=== PATIENT | female | born 1940 | race Caucasian/White ===

== ENCOUNTER 2017-10-19 17:23 | Emergency (ER) | payer MEDICARE ==
[2017-10-19] MEDS ORDERED: GABA-549 PO (17:40)
[2017-10-19] MEDS ORDERED: IBAN3DIS2 IV (17:40)
--- NOTE | 2017-10-19 17:48 | ER Report ---
History and Physical Time Seen By MD: 17:47 Hx. of Stated Complaint: PATIENT REPORTS SYMPTOMS OF UTI HPI/ROS CHIEF COMPLAINT: Urinary tract infection HISTORY OF PRESENT ILLNESS: This is a 77-year-old female presents to the emergency department for urinary tract infection. Patient states that she is traveling through with her granddaughter from [facility] to [facility], yesterday she developed some very discomfort progressively getting worse through today. Patient states she does have burning, urgency and frequency. Patient denies fevers, chest pain, shortness of breath. No other complaints. Patient has had these in the past. Allergies: Coded Allergies: No Known Drug Allergies (Unverified , 10/19/17) Home Meds Active Scripts Nitrofurantoin Monohyd/M-Cryst (MACROBID 100 MG CAPSULE) 100 Mg Capsule, 100 MG PO BID for 5 Days, #10 CAPSULE 0 Refills Prov:JASON GARCIASON Mamadou [employer] CONSULTANT-BC 10/19/17 Reported Medications Ibandronate Sodium (BONIVA) 3 Mg/3 Ml Disp.syrin, 3 MG IV Q30D 10/19/17 Gabapentin (GABAPENTIN) 300 Mg Capsule, 300 MG PO QHS, CAPSULE 10/19/17 Past Medical/Surgical History The patient has a past medical and surgical history of osteoporosis, urinary tract infection. Reviewed Nurses Notes: Yes Hx Substance Use Disorder: No Hx Alcohol Use: No Constitutional Vital Sign - Last 24 Hours 10/19/17 10/19/17 17:41 18:19 Temp 97.8 Pulse 98 78 Resp 20 20 B/P (MAP) 177/95 165/84 (111) Pulse Ox 91 96 O2 Delivery Room Air Room Air Physical Exam General appearance: Alert no distress. Respiratory: Chest is non tender, lungs are clear to auscultation. Cardiac: Regular rate and rhythm. DIFFERENTIAL DIAGNOSIS: After history and physical exam differential diagnosis was considered for urinary tract infection. Medical Decision Making Data Points Laboratory Hematology Test 10/19/17 17:28 Urine Color Yellow Urine Clarity Slightly-cloudy Urine pH 7.0 pH (4.8-9.5) Urine Specific [place] 1.004 Urine Protein Negative mg/dL (NEGATIVE) Urine Glucose (UA) Negative mg/dL (NEGATIVE) Urine Ketones Negative mg/dL (NEGATIVE) Urine Blood Moderate (NEGATIVE) Urine Nitrite Positive (NEGATIVE) Urine Bilirubin Negative (NEGATIVE) Urine Urobilinogen Negative mg/dL (0.2-1.9) Urine Leukocyte Esterase Large (NEGATIVE) Urine RBC 7 /HPF (0-2/HPF) Urine WBC 84 /HPF (0-5/HPF) Urine Squamous Epithelial Cells Moderate /LPF (</=FEW) Urine Bacteria Few /HPF (NONE-FEW) Urine Hyaline Casts Few /LPF (NONE-FEW) Urine Mucus None /HPF (NONE-FEW) Chemistry Test 10/19/17 17:28 Urine Color Yellow Urine Clarity Slightly-cloudy Urine pH 7.0 pH (4.8-9.5) Urine Specific [place] 1.004 Urine Protein Negative mg/dL (NEGATIVE) Urine Glucose (UA) Negative mg/dL (NEGATIVE) Urine Ketones Negative mg/dL (NEGATIVE) Urine Blood Moderate (NEGATIVE) Urine Nitrite Positive (NEGATIVE) Urine Bilirubin Negative (NEGATIVE) Urine Urobilinogen Negative mg/dL (0.2-1.9) Urine Leukocyte Esterase Large (NEGATIVE) Urine RBC 7 /HPF (0-2/HPF) Urine WBC 84 /HPF (0-5/HPF) Urine Squamous Epithelial Cells Moderate /LPF (</=FEW) Urine Bacteria Few /HPF (NONE-FEW) Urine Hyaline Casts Few /LPF (NONE-FEW) Urine Mucus None /HPF (NONE-FEW) Urinalysis Test 10/19/17 17:28 Urine Color Yellow Urine Clarity Slightly-cloudy Urine pH 7.0 pH (4.8-9.5) Urine Specific [place] 1.004 Urine Protein Negative mg/dL (NEGATIVE) Urine Glucose (UA) Negative mg/dL (NEGATIVE) Urine Ketones Negative mg/dL (NEGATIVE) Urine Blood Moderate (NEGATIVE) Urine Nitrite Positive (NEGATIVE) Urine Bilirubin Negative (NEGATIVE) Urine Urobilinogen Negative mg/dL (0.2-1.9) Urine Leukocyte Esterase Large (NEGATIVE) Urine RBC 7 /HPF (0-2/HPF) Urine WBC 84 /HPF (0-5/HPF) Urine Squamous Epithelial Cells Moderate /LPF (</=FEW) Urine Bacteria Few /HPF (NONE-FEW) Urine Hyaline Casts Few /LPF (NONE-FEW) Urine Mucus None /HPF (NONE-FEW) ED Course/Re-evaluation ED Course The patient was admitted to room. A history and physical were obtained. Differential diagnoses were considered. A UA was collected, the UA showing a urinary tract infection. Patient was given a prescription for Macrobid she was also given a take home pack for Macrobid. The patient had no other questions or concerns at this time and discharged home. She was encouraged to drink plenty water and follow-up with any other concerns. Decision to Disposition Date: Oct 19, 2017 Decision to Disposition Time: 18:07 Depart Departure Latest Vital Signs Vital Signs Date Time Temp Pulse Resp B/P (MAP) Pulse Ox O2 Delivery O2 Flow Rate FiO2 10/19/17 18:19 78 20 165/84 (111) 96 Room Air 10/19/17 17:41 97.8 Impression: Primary Impression: Urinary tract infection Condition: Improved Disposition: HOME OR SELF-CARE New Scripts Nitrofurantoin Monohyd/M-Cryst (MACROBID 100 MG CAPSULE) 100 Mg Capsule 100 MG PO BID for 5 Days, #10 CAPSULE 0 Refills Prov: HARLAN GARCIA-ANNETTA 10/19/17 Patient Instructions: Urinary Tract Infection in Women (ED) Additional Instructions: Drink plenty of fluids. Get plenty of rest. Take medications as prescribed. If you continue to have urinary discomfort of that antibiotics be sure to follow up with the nearest emergency department or urgent care. Problem Qualifiers Primary Impression: Urinary tract infection Urinary tract infection type: acute cystitis Hematuria presence: without hematuria Qualified Codes: N30.00 - Acute cystitis without hematuria HARLAN GARCIA [employer] CONSULTANT-BC Oct 19, 2017 17:47
[2017-10-19] MEDS ORDERED: NITR-105 PO (17:54)
[2017-10-19] MEDS ORDERED: NITROFURANTOIN MACROCRYSTALS 50 MG PO ONE (18:10)
[2017-10-19 18:19] VITALS: BP 165/84
== END 2017-10-19 18:20 | disposition home or self-care (01) ==
LOC: ER 17:41
DX: N39.0 Urinary tract infection, site not specified (principal)
CPT/HCPCS: 81001; 99283; A9270